=== PATIENT | male | born 1955 | race Caucasian/White ===

== ENCOUNTER → 2019-07-17 10:47 | Outpatient (CLI) | payer MEDICARE, SELFPAY ==
--- NOTE | 2019-07-17 | DI.CT.S_ITS ---
PROCEDURE: CT ABDOMEN PELVIS WO/W CON INDICATIONS: Gross hematuria TECHNIQUE: Optional 5 mm thick noncontrast images acquired from the diaphragm to the symphysis pubis. After the administration of intravenous contrast, 5 mm thick images acquired from the diaphragm to the symphysis pubis after a 10-minute delay. 2 mm thick coronal and sagittal reformats were then performed of the kidneys and ureters. For radiation dose reduction, the following was used: automated exposure control, adjustment of mA and/or kV according to patient size. COMPARISON: None. FINDINGS: Image quality: Excellent. Lung bases: Lung bases are clear. Heart size is normal. Urinary system: Both kidneys are normal in size, without hydronephrosis or nephrolithiasis on pre-contrast images. No perinephric fat stranding. There is normal bilateral renal enhancement. Renal calyces appear normal in morphology when filled with contrast. Opacified portions of both ureters demonstrate normal caliber. Bladder wall thickness is normal considering low bladder volume. No calcified bladder stones. Note is made of a 2.5 cm ovoid uniformly homogeneous 22 Hounsfield units nodule at the right adrenal gland. Incidental note is made of a 1 mm nonobstructive calculus at the left mid kidney anteriorly. Other solid organs: Liver is normal in size and enhancement. Gallbladder appears normal. Biliary system is non dilated. Pancreas enhances normally. Spleen is normal in size and enhancement with a 2.8 cm posterior splenic cyst showing no abnormal enhancement along its margins. No left-sided adrenal nodules. Peritoneum and bowel: Bowel loops demonstrate normal wall thickness and caliber. No free fluid or air. Nodes and vessels: No retroperitoneal or mesenteric adenopathy by size criteria. Aorta and inferior vena cava are normal in size. Abdominal wall: No ventral hernias. Pelvis: No pathologic free pelvic fluid. No inguinal hernias or adenopathy. Bones: No suspicious bony lesions. No vertebral body compression fractures. IMPRESSION: 1. Incidental finding of what likely is a 2.5 cm benign right adrenal nodule, at the suprarenal space, which should be evaluated utilizing adrenal protocol MR scanning without contrast to confirm benign etiology. 2. There is a punctate 1 mm calcification at what likely is a calyx of the anterior right kidney, seen on series 2 image 36. A stone of this small size frequently does not produce hematuria, especially gross hematuria, and and therefore this is likely a incidental finding. 3. Through the course of both ureters no mass or calculus is found. The bladder wall is somewhat difficult to accurately assess due to relative contraction of the bladder during time of scanning. Mild prostate enlargement. Dictated by: Ector Leiva M.D. on 07/17/2019 at 14:50 Approved by: Ector Leiva M.D. on 07/17/2019 at 14:57
== END ==
PROVIDERS: PCP Family Medicine; Visit Provider Family Medicine
DX: R31.0 Gross hematuria (principal); N20.0 Calculus of kidney; N40.0 Benign prostatic hyperplasia without lower urinary tract symptoms; E27.9 Disorder of adrenal gland, unspecified; D73.4 Cyst of spleen
CPT/HCPCS: 74178; Q9967

== ENCOUNTER → 2021-01-09 08:11 | Outpatient (CLI) | payer MEDICARE, SELFPAY ==
[2021-01-09 19:05] LABS: Add Manual Diff / Slide Review NO; Basophils Absolute Auto 100 /uL (0-100); Basophils Percent Auto 1.2 % (0-2); Eosinophils Absolute Auto 200 /uL (0-450); Lymphocytes Absolute Auto 2500 /uL (1100-4500); Lymphocytes Percent Auto 26.5 % (25-40); Mean Corpuscular HGB Conc 33.3 % (30-36); Mean Corpuscular Hemoglobin 31.6 PG (26-34); Monocytes Absolute Auto 500 /uL (0-900); Monocytes Percent Auto 4.8 % (3-14); Neutrophils Absolute Auto 6300 /uL (1500-7000); Neutrophils Percent Auto 65.5 % (50-75); Platelet Count 263 X10^3/uL (150-400); Red Blood Cell Count 4.73 X10^6/uL (4.5-5.9); Red Cell Distribution Width 13.3 % (11.6-14.8); White Blood Cell Count 9.5 X10^3/uL (4.5-11.0)
[2021-01-09 19:14] LABS: Alanine Aminotransferase 19 IU/L (<50); Albumin 4.3 g/dL (3.5-5.0); Albumin Globulin Ratio 1.4 (1.0-2.8); Alkaline Phosphatase 77 U/L (38-126); Aspartate Aminotransferase 22 IU/L (17-59); BUN Creatinine Ratio 15.7 (6-22); Bilirubin Total 0.5 mg/dL (0.2-1.3); Blood Urea Nitrogen 14 mg/dL (9-20); Calcium 9.6 mg/dL (8.4-10.2); Carbon Dioxide 28 mmol/L (22-32); Chloride 104 mmol/L (98-107); Cholesterol 223 mg/dL (140-199); Estimated Glomerular Filt Rate > 60.0 mL/min (>60); Globulin 3.1 g/dL (1.7-4.1); Glucose 115 mg/dL (80-110); HDL Cholesterol 36 mg/dL (40-60); HEMOLYSIS < 15 (0-50); LDL Cholesterol Calculated 150 mg/dL (<100); Potassium 4.1 mmol/L (3.4-5.1); Sodium 141 mmol/L (137-145); Total Protein 7.4 g/dL (6.3-8.2); Triglycerides 185 mg/dL (35-150)
[2021-01-09 19:57] LABS: Hemoglobin A1C% w Est Avg Glu 5.4 % (4.0-6.0)
== END ==
PROVIDERS: PCP Family Medicine; Visit Provider Family Medicine
DX: F10.20 Alcohol dependence, uncomplicated (principal); R10.9 Unspecified abdominal pain; R73.9 Hyperglycemia, unspecified; F12.90 Cannabis use, unspecified, uncomplicated; F33.1 Major depressive disorder, recurrent, moderate; I25.10 Atherosclerotic heart disease of native coronary artery without angina pectoris; Z95.1 Presence of aortocoronary bypass graft
CPT/HCPCS: 80053; 80061; 83036; 85025

== ENCOUNTER → 2021-08-31 08:57 | Outpatient (CLI) | payer MEDICARE, SELFPAY ==
[2021-08-31 19:41] LABS: Add Manual Diff / Slide Review NO; Basophils Absolute Auto 100 /uL (0-100); Basophils Percent Auto 0.8 % (0-2); Eosinophils Absolute Auto 200 /uL (0-450); Eosinophils Percent Auto 2.1 % (2-4); Hematocrit 45.1 % (41-53); Hemoglobin 15.4 g/dL (13.5-17.5); Lymphocytes Absolute Auto 2100 /uL (1100-4500); Lymphocytes Percent Auto 24.8 % (25-40); Mean Corpuscular HGB Conc 34.3 % (30-36); Mean Corpuscular Hemoglobin 32.7 PG (26-34); Mean Corpuscular Volume 95.5 fL (80-100); Monocytes Absolute Auto 400 /uL (0-900); Monocytes Percent Auto 5.1 % (3-14); Neutrophils Absolute Auto 5800 /uL (1500-7000); Neutrophils Percent Auto 67.2 % (50-75); Platelet Count 285 X10^3/uL (150-400); Red Blood Cell Count 4.72 X10^6/uL (4.5-5.9); Red Cell Distribution Width 13.7 % (11.6-14.8); White Blood Cell Count 8.6 X10^3/uL (4.5-11.0)
[2021-08-31 19:48] LABS: Cholesterol 296 mg/dL (140-199); HDL Cholesterol 39 mg/dL (40-60); LDL Cholesterol Calculated 214 mg/dL (<100); Triglycerides 213 mg/dL (35-150)
[2021-08-31 19:49] LABS: Alanine Aminotransferase 25 IU/L (<50); Albumin 4.5 g/dL (3.5-5.0); Albumin Globulin Ratio 1.5 (1.0-2.8); Alkaline Phosphatase 78 U/L (38-126); Aspartate Aminotransferase 28 IU/L (17-59); BUN Creatinine Ratio 8.5 (6-22); Blood Urea Nitrogen 8 mg/dL (9-20); Calcium 9.9 mg/dL (8.4-10.2); Carbon Dioxide 27 mmol/L (22-32); Chloride 104 mmol/L (98-107); Estimated Glomerular Filt Rate > 60.0 mL/min (>60); Globulin 3.1 g/dL (1.7-4.1); Glucose 113 mg/dL (80-110); HEMOLYSIS < 15 (0-50); Potassium 4.2 mmol/L (3.4-5.1); Sodium 139 mmol/L (137-145); Total Protein 7.6 g/dL (6.3-8.2)
[2021-08-31 20:17] LABS: Hemoglobin A1C% w Est Avg Glu 5.4 % (4.0-6.0)
[2021-08-31 20:19] LABS: TSH w/ Reflex to FT4 2.68 uIU/mL (0.47-4.68)
== END ==
PROVIDERS: PCP Family Medicine; Referring Provider Family Medicine; Visit Provider Family Medicine
DX: R73.9 Hyperglycemia, unspecified (principal); Z85.038 Personal history of other malignant neoplasm of large intestine; F33.1 Major depressive disorder, recurrent, moderate; F10.20 Alcohol dependence, uncomplicated; I25.118 Atherosclerotic heart disease of native coronary artery with other forms of angina pectoris; G62.1 Alcoholic polyneuropathy
CPT/HCPCS: 80053; 80061; 83036; 84443; 85025

== ENCOUNTER → 2021-09-18 09:15 | Outpatient (CLI) | payer MEDICARE, SELFPAY ==
[2021-09-18 20:20] LABS: COVID19 - ORCAS (NP or Nasal) Negative (Negative)
== END ==
PROVIDERS: PCP Family Medicine; Visit Provider Physician Assistant Medical
DX: Z20.822 Contact with and (suspected) exposure to COVID-19 (principal)
CPT/HCPCS: U0003

== ENCOUNTER → 2021-11-12 08:29 | Outpatient (CLI) | payer MEDICARE, SELFPAY ==
[2021-11-12 19:53] LABS: Alanine Aminotransferase 20 IU/L (<50); Albumin 4.5 g/dL (3.5-5.0); Albumin Globulin Ratio 1.6 (1.0-2.8); Alkaline Phosphatase 76 U/L (38-126); Aspartate Aminotransferase 23 IU/L (17-59); Bilirubin Total 0.8 mg/dL (0.2-1.3); Blood Urea Nitrogen 12 mg/dL (9-20); Calcium 9.6 mg/dL (8.4-10.2); Carbon Dioxide 28 mmol/L (22-32); Chloride 103 mmol/L (98-107); Cholesterol 159 mg/dL (140-199); Estimated Glomerular Filt Rate > 60.0 mL/min (>60); Globulin 2.8 g/dL (1.7-4.1); Glucose 104 mg/dL (80-110); HDL Cholesterol 36 mg/dL (40-60); HEMOLYSIS < 15 (0-50); LDL Cholesterol Calculated 101 mg/dL (<100); Potassium 4.4 mmol/L (3.4-5.1); Sodium 140 mmol/L (137-145); Total Protein 7.3 g/dL (6.3-8.2); Triglycerides 110 mg/dL (35-150)
[2021-11-12 20:21] LABS: TSH w/ Reflex to FT4 2.41 uIU/mL (0.47-4.68)
== END ==
PROVIDERS: PCP Family Medicine; Visit Provider Family Medicine
DX: I25.118 Atherosclerotic heart disease of native coronary artery with other forms of angina pectoris (principal); F33.1 Major depressive disorder, recurrent, moderate; E78.5 Hyperlipidemia, unspecified; I10 Essential (primary) hypertension
CPT/HCPCS: 80053; 80061; 84443

== ENCOUNTER → 2022-03-30 08:57 | Outpatient (CLI) | payer MEDICARE, SELFPAY ==
[2022-03-30 20:19] LABS: Alanine Aminotransferase 18 IU/L (<50); Albumin 4.1 g/dL (3.5-5.0); Albumin Globulin Ratio 1.5 (1.0-2.8); Alkaline Phosphatase 70 U/L (38-126); Aspartate Aminotransferase 21 IU/L (17-59); BUN Creatinine Ratio 16.3 (6-22); Bilirubin Total 0.9 mg/dL (0.2-1.3); Blood Urea Nitrogen 15 mg/dL (9-20); Calcium 9.1 mg/dL (8.4-10.2); Carbon Dioxide 28 mmol/L (22-32); Chloride 103 mmol/L (98-107); Cholesterol 137 mg/dL (140-199); Estimated Glomerular Filt Rate > 60 mL/min (>60); Globulin 2.7 g/dL (1.7-4.1); Glucose 92 mg/dL (80-110); HDL Cholesterol 36 mg/dL (40-60); HEMOLYSIS < 15 (0-50); LDL Cholesterol Calculated 83 mg/dL (<100); Potassium 4.1 mmol/L (3.4-5.1); Sodium 139 mmol/L (137-145); Total Protein 6.8 g/dL (6.3-8.2); Triglycerides 89 mg/dL (35-150)
== END ==
PROVIDERS: PCP Family Medicine; Visit Provider Family Medicine
DX: I25.10 Atherosclerotic heart disease of native coronary artery without angina pectoris (principal); E78.5 Hyperlipidemia, unspecified; F32.A Depression, unspecified; I10 Essential (primary) hypertension; M75.00 Adhesive capsulitis of unspecified shoulder
CPT/HCPCS: 80053; 80061

== ENCOUNTER → 2022-08-11 10:54 | Outpatient (CLI) | payer MEDICARE, SELFPAY ==
[2022-08-11 21:01] LABS: Alanine Aminotransferase 20 IU/L (<50); Albumin 4.2 g/dL (3.5-5.0); Albumin Globulin Ratio 1.4 (1.0-2.8); Alkaline Phosphatase 84 U/L (38-126); Aspartate Aminotransferase 22 IU/L (17-59); BUN Creatinine Ratio 20.4 (6-22); Bilirubin Total 1.1 mg/dL (0.2-1.3); Blood Urea Nitrogen 19 mg/dL (9-20); Calcium 9.1 mg/dL (8.4-10.2); Carbon Dioxide 26 mmol/L (22-32); Chloride 102 mmol/L (98-107); Cholesterol 184 mg/dL (140-199); Estimated Glomerular Filt Rate > 60 mL/min (>60); Glucose 101 mg/dL (80-110); HDL Cholesterol 47 mg/dL (40-60); HEMOLYSIS < 15 (0-50); LDL Cholesterol Calculated 118 mg/dL (<100); Potassium 4.3 mmol/L (3.4-5.1); Sodium 137 mmol/L (137-145); Total Protein 7.2 g/dL (6.3-8.2); Triglycerides 94 mg/dL (35-150)
== END ==
PROVIDERS: PCP Family Medicine; Visit Provider Family Medicine
DX: E78.5 Hyperlipidemia, unspecified (principal); I10 Essential (primary) hypertension; Z95.1 Presence of aortocoronary bypass graft
CPT/HCPCS: 80053; 80061

== ENCOUNTER → 2022-12-20 10:07 | Outpatient (CLI) | payer MEDICARE, MEDICAID, SELFPAY ==
--- NOTE | 2022-12-20 | DI.ECHO.S_ITS ---
[place] [facility]---------+ [facility] +---------+ : : [address] : [address] : : : : [id number] : : : : Phone: [phone]+ Echocardiogram Report + + :Name: LITTLE REDDY Study Date: 12/20/2022 Height: 76 in : :[facility] ReadingLocation: Weight: 200 lb : : Gender: Male BSA: 2.2 m2 : :: 1955 Age: 67 yrs BP: 134/78 mmHg: :Reason For Study: PRESENCE OF AORTOCORONARY BYPASS GRAFT HR: 64 : :Ordering Physician: THADDEUS, : :DEANA Performed By: THONY HERNANDEZ : :Referring: DEANA WINTERS : + + Interpretation Summary 1) Normal left ventricular thickness, size, wall motion, and systolic function (EF 60-65%). 2) Normal right ventricular size with mildly reduced function. 3) No significant valvular abnormalities. 4) No prior Echo available for comparison. Procedure: A two-dimensional transthoracic echocardiogram with color flow and Doppler was performed. The study quality was technically adequate. There is no prior echocardiogram noted for this patient. The patient was in normal sinus rhythm during the exam. Left Ventricle: The left ventricle is normal in size and wall thickness. The ejection fraction is estimated to be 60-65%. Left ventricular systolic function appears normal without focal wall motion abnormalities. Diastolic parameters suggest a relaxation abnormality of the left ventricle, consistent with probable normal filling pressures. Right Ventricle: The right ventricle is normal size. Right ventricular systolic function is mildly reduced. Atria: The left atrial size is normal. Right atrial size is normal. There is no Doppler evidence for an interatrial shunt. Mitral Valve: The mitral valve leaflets appear mildly thickened, but open well. There is trace mitral regurgitation. Aortic Valve: The aortic valve is trileaflet. The aortic valve opens well. There is no aortic valve stenosis. No aortic regurgitation is present. Tricuspid Valve: The tricuspid valve is normal in structure and function. There is mild tricuspid regurgitation. The right ventricular systolic pressure is estimated to be at least 20 mmHg based on an estimated right atrial pressure of 3 mm Hg. Pulmonic Valve: The pulmonic valve leaflets are thin and pliable; valve motion is normal. There is trace pulmonic regurgitation. Great Vessels: The aortic root is normal size. The ascending aorta is normal in size. The IVC is of normal diameter and collapses greater than 50% with a sniff. This suggests a low right atrial pressure of 3 mm Hg. Pericardium/ Pleura There is no pericardial effusion. There is no pleural effusion. MMode/2D Measurements & Calculations LVIDd: 4.5 cm LVOT diam: 2.0 cm LVIDs: 2.9 cm Ao root diam: 3.6 cm FS: 35.6 % asc Aorta Diam: 3.5 cm IVSd: 0.80 cm LVPWd: 0.80 cm LV patel. diameter/BSA (cm/m^2): 2.0 LV sys. diameter/BSA (cm/m^2): 1.3 LA A2 area: 20.0 cm2 RA long axis: 4.7 cm LA A4 area: 12.7 cm2 LA length (vol): 5.7 cm LA vol: 38.1 ml LA vol index: 17.2 ml/m2 LVLs ap4: 6.3 cm LVLd ap2: 7.7 cm LVLs ap2: 6.9 cm TAPSE_phl: 1.5 cm Doppler Measurements & Calculations Ao V2 max: 155.0 cm/sec LVOT Max Edil: 122.0 cm/sec Ao V2 mean: 113.0 cm/sec LV V1 max P.0 mmHg Ao max P.0 mmHg LV V1 VTI: 29.4 cm Ao mean P.0 mmHg BRYANT(I,D): 2.6 cm2 Ao V2 VTI: 36.2 cm BRYANT(V,D): 2.5 cm2 sev ratio: 0.81 BRYANT indexed to BSA (cm^2/m^2): 1.2 MV E max edil: 109.0 cm/sec TR max edil: 208.0 cm/sec MV A max edil: 86.5 cm/sec TR max P.3 mmHg MV E/A: 1.3 PA V2 max: 138.0 cm/sec Med Peak E' Edil: 10.3 cm/sec PA V2 mean: 102.0 cm/sec E/E' med: 10.6 PA mean P.0 mmHg Lat Peak E' Edil: 14.5 cm/sec PA pr(Accel): 25.0 mmHg E/E' lat: 7.5 E/e' average: 9.0 MV dec time: 0.25 sec SV(LVOT): 92.4 ml AV VR_phl: 0.79 BRYANT(VTI)/BSA_phl: 1.1 MV P1/2t-pr_phl: 74.0 msec Reading Physician:02:39 PM
--- NOTE | 2022-12-20 22:01 | DI.NM.S_ITS ---
DATE OF SERVICE: 12/20/2022 PROCEDURE: Exercise treadmill stress and rest myocardial perfusion imaging with gating to assess ejection fraction and regional wall motion. ORDERING PROVIDER: Edmond Winters MD INDICATIONS: The patient is a 67-year-old male with reduced exercise capacity and atypical chest discomfort with a history of tobacco use and previous CABG. CARDIAC STRESS: The patient was able to exercise for 4 minutes and 12 seconds on a standard Joon protocol suggesting moderate-severely reduced exercise capacity with an SUSIE of +37%, achieving 7.0 METS. He had a normal heart rate response to exercise, achieving a maximum heart rate of 148 bpm (97% of his predicted maximum). He had a borderline hypertensive blood pressure response with a resting blood pressure of 130/80 increasing to a maximum of 200/104. He had no chest pain or other anginal symptoms although had limiting exertional dyspnea. His resting ECG shows sinus rhythm with some nonspecific ST- segment abnormalities that become slightly accentuated with stress, but remain nonspecific. There were no arrhythmias. At 3 minutes and 10 seconds of exercise at a heart rate of 133 bpm, 25.4 millicuries of technetium-99m Myoview was injected and he was imaged 10 minutes later using a gated SPECT acquisition protocol. Earlier in the day while at rest, he had been injected with 12.3 millicuries of technetium-99m Myoview and was imaged 15 minutes later, again using a gated SPECT acquisition protocol. FINDINGS: 1. Raw data. There is fair myocardial tracer uptake with mild motion noted on the resting images which could introduce artifact. The lung/heart ratio is normal at 0.29 with a normal TID ratio of 0.85. 2. Quantitated gated SPECT: Post-stress ejection fraction is estimated at 74% without any focal wall motion abnormalities although slight lateral translation consistent with previous surgery. Resting ejection fraction is 71% with a normal end-diastolic volume of 119 mL. There is borderline increased tracer uptake of the right ventricular free wall which could be a sign of a right ventricular overload condition. 3. Myocardial perfusion imaging: Post-stress supine images show a normal myocardial perfusion pattern without any perfusion defects, supported by normal perfusion imaging in the prone position. The resting images show a mild defect in the inferior wall, but no areas of improvement. IMPRESSION: 1. Normal myocardial perfusion study. 2. No evidence for myocardial ischemia or previous myocardial infarction. 3. Normal left ventricular systolic function without focal wall motion abnormality. There is borderline increased tracer uptake of the right ventricular free wall which could be a sign of a right ventricular overload condition but clinical correlation is needed. 4. Moderate-severely reduced exercise capacity with limiting dyspnea but no chest discomfort or ECG evidence of ischemia. Roderick Barney - [place]/darvin/heide doc#: [id number]/job#: [id number] dd: 12/20/2022 16:39:00 dt: 12/20/2022 21:45:00 DICTATING MD/COPIES TO: Donavan Shi MD; Edmond Winters MD COPIES MNE: YURI;
== END ==
PROVIDERS: PCP Physician Assistant; Referring Provider Internal Medicine Cardiovascular Disease; Visit Provider Internal Medicine Cardiovascular Disease
DX: Z95.1 Presence of aortocoronary bypass graft (principal); R07.89 Other chest pain; R06.09 Other forms of dyspnea; I07.1 Rheumatic tricuspid insufficiency; I25.10 Atherosclerotic heart disease of native coronary artery without angina pectoris; Z87.891 Personal history of nicotine dependence
CPT/HCPCS: 78452; 93017; 93306; A9502

== ENCOUNTER → 2023-03-21 10:46 | Outpatient (CLI) | payer MEDICARE, MEDICAID, SELFPAY ==
[2023-03-21 19:35] LABS: Add Manual Diff / Slide Review NO; Basophils Absolute Auto 100 /uL (0-100); Basophils Percent Auto 0.9 % (0-2); Eosinophils Absolute Auto 200 /uL (0-450); Eosinophils Percent Auto 1.9 % (2-4); Hematocrit 38.7 % (41-53); Hemoglobin 13.2 g/dL (13.5-17.5); Lymphocytes Absolute Auto 2500 /uL (1100-4500); Lymphocytes Percent Auto 29.3 % (25-40); Mean Corpuscular HGB Conc 34.2 % (30-36); Mean Corpuscular Hemoglobin 31.8 PG (26-34); Monocytes Absolute Auto 500 /uL (0-900); Monocytes Percent Auto 5.4 % (3-14); Neutrophils Absolute Auto 5300 /uL (1500-7000); Neutrophils Percent Auto 62.5 % (50-75); Platelet Count 207 X10^3/uL (150-400); Red Blood Cell Count 4.17 X10^6/uL (4.5-5.9); Red Cell Distribution Width 12.5 % (11.6-14.8); White Blood Cell Count 8.5 X10^3/uL (4.5-11.0)
[2023-03-21 19:42] LABS: Alanine Aminotransferase 23 IU/L (<50); Albumin Globulin Ratio 1.5 (1.0-2.8); Alkaline Phosphatase 66 U/L (38-126); Aspartate Aminotransferase 24 IU/L (17-59); BUN Creatinine Ratio 18.1 (6-22); Bilirubin Total 0.4 mg/dL (0.2-1.3); Blood Urea Nitrogen 15 mg/dL (9-20); Calcium 8.9 mg/dL (8.4-10.2); Carbon Dioxide 26 mmol/L (22-32); Chloride 104 mmol/L (98-107); Cholesterol 111 mg/dL (140-199); Estimated Glomerular Filt Rate > 60 mL/min (>60); Globulin 2.6 g/dL (1.7-4.1); Glucose 103 mg/dL (80-110); HDL Cholesterol 33 mg/dL (40-60); HEMOLYSIS < 15 (0-50); LDL Cholesterol Calculated 61 mg/dL (<100); Potassium 4.4 mmol/L (3.4-5.1); Sodium 139 mmol/L (137-145); Total Protein 6.6 g/dL (6.3-8.2); Triglycerides 87 mg/dL (35-150)
[2023-03-21 19:50] LABS: Free T4, Direct Thyroxine 1.22 ng/dL (0.78-2.19)
== END ==
PROVIDERS: PCP Physician Assistant; Visit Provider Family Medicine
DX: C80.1 Malignant (primary) neoplasm, unspecified (principal); E78.2 Mixed hyperlipidemia; G63 Polyneuropathy in diseases classified elsewhere; I25.10 Atherosclerotic heart disease of native coronary artery without angina pectoris; I10 Essential (primary) hypertension
CPT/HCPCS: 80053; 80061; 84439; 85025

== ENCOUNTER → 2023-05-12 10:52 | Outpatient (CLI) | payer MEDICARE, MEDICAID, SELFPAY ==
[2023-05-12 20:02] LABS: HEMOLYSIS < 15 (0-50); Iron 95 ug/dL (49-181)
[2023-05-12 20:04] LABS: Add Manual Diff / Slide Review NO; Basophils Absolute Auto 100 /uL (0-100); Basophils Percent Auto 1.3 % (0-2); Eosinophils Absolute Auto 300 /uL (0-450); Eosinophils Percent Auto 3.9 % (2-4); Hematocrit 39.9 % (41-53); Hemoglobin 13.6 g/dL (13.5-17.5); Lymphocytes Absolute Auto 2400 /uL (1100-4500); Lymphocytes Percent Auto 28.9 % (25-40); Mean Corpuscular Hemoglobin 31.3 PG (26-34); Mean Corpuscular Volume 91.9 fL (80-100); Monocytes Absolute Auto 600 /uL (0-900); Neutrophils Absolute Auto 5000 /uL (1500-7000); Neutrophils Percent Auto 58.9 % (50-75); Platelet Count 236 X10^3/uL (150-400); Red Blood Cell Count 4.35 X10^6/uL (4.5-5.9); Red Cell Distribution Width 12.5 % (11.6-14.8); White Blood Cell Count 8.4 X10^3/uL (4.5-11.0)
[2023-05-12 20:12] LABS: Transferrin 245 mg/dL (206-381)
[2023-05-12 20:13] LABS: Reticulocyte Count, Percent 1.1 % (0.9-2.6)
[2023-05-12 20:43] LABS: Vitamin B12 304 pg/mL (239-931)
[2023-05-12 20:53] LABS: Percent Iron Saturation 26 % (20-50); Total Iron Binding Capacity 367 ug/dL (261-462)
[2023-05-12 21:01] LABS: Folate 6.4 ng/mL (2.76-20.0)
== END ==
PROVIDERS: PCP Family Medicine; Visit Provider Family Medicine
DX: D64.9 Anemia, unspecified (principal); E78.2 Mixed hyperlipidemia; F10.21 Alcohol dependence, in remission; F17.200 Nicotine dependence, unspecified, uncomplicated; I10 Essential (primary) hypertension; I25.10 Atherosclerotic heart disease of native coronary artery without angina pectoris
CPT/HCPCS: 82607; 82746; 83540; 83550; 85025; 85045

== ENCOUNTER 2023-08-18 09:05 | Day surgery (SDC) | payer MEDICARE, MEDICAID, SELFPAY ==
--- NOTE | 2023-08-18 | PATH_ITS ---
[facility] Accession Number: [id number] No. of containers..02 Tissue . 01 Material submitted: . PART A: colon - TRANSVERSE POLYPS PART B: rectum - RECTAL POLYP . 01 Diagnosis: A. Transverse Colon, Polyps: Tubular adenomas. . B. Rectum, Polyp: Tubular adenoma. MRV 08/24/2023 1710 Local . 01 Electronically signed: . Carleen Rajan MD, Pathologist NPI- [id number] . 01 Gross description: . Part A: TRANSVERSE POLYPS: Received in formalin is 3 fragment(s) of munguia, soft tissue measuring 0.4 x 0.3 x 0.3 cm to 0.3 x 0.3 x 0.2 cm submitted entirely in 1 cassette(s) Part B: RECTAL POLYP: Received in formalin is 1 fragment(s) of munguia, soft tissue measuring 0.8 x 0.5 x 0.4 cm which is bisected and submitted entirely in 1 cassette(s) /AAY 08/19/2023 0454 Local . 01 Pathologist provided ICD-10: D12.3, D12.8 . 01 CPT . C57945, [id number] Specimen Comment: A courtesy copy of this report has been sent to [phone] Performed at: 01 [facility] [address] [place] [address], [place], [place] [id number] MD Vincent Langston MD Phone: [phone]
[2023-08-18 09:23] VITALS: BP 143/85; PULSE 64; RESP 16; TEMP 36.1; O2SAT 98; BMI 25.5
[2023-08-18] MEDS: LACTATED RINGERS 1,000 ML 150 ML IV (09:39)
--- NOTE | 2023-08-18 10:27 | P.HP_ITS ---
History of Present Illness History of Present Illness Date Patient Seen: 08/18/23 Time Patient Seen: 10:27 Chief complaint: SDC Narrative: Roderick is a 68-year-old man with a history of colon cancer. He had a right hemicolectomy in approximately 2015 in [place]. He has not had a colonoscopy since then. COUNTS INCLUDE 234 BEDS AT THE [facility] Medical History (Updated 06/17/23 @ 13:56 by Donavan Og MD) Rectal bleeding Hypertension Adhesive capsulitis History of gross hematuria Alcoholism in remission Colon cancer Surgical History History of coronary artery bypass graft x 3 Social History household members: none Smoking Status: Current every day smoker alcohol intake: current additional social history: Patient states he is not currently drinking. 02/2023. jsm Meds Home Medications and Allergies Home Medications Medication Instructions Recorded Confirmed Type aspirin 325 mg tablet 325 mg PO BID 06/05/21 08/18/23 History nitroglycerin 0.4 mg sublingual 0.4 mg sublingual Q5M PRN chest 04/13/22 07/18/23 Rx tablet pain #30 tabs diphenhydramine 25 1 tab PO BEDTIME PRN Sleep 09/16/22 08/18/23 History mg-acetaminophen 500 mg tablet (Tylenol PM Extra Strength) lisinopril 20 mg tablet See Rx Instructions .Route 11/16/22 08/18/23 Rx .COMPLEX #90 tabs omeprazole 20 mg capsule,delayed See Rx Instructions .Route 11/16/22 08/18/23 Rx release .COMPLEX #180 caps albuterol sulfate 90 mcg/actuation 2 puff inhalation QID PRN 04/28/23 08/18/23 Rx aerosol inhaler (Ventolin HFA) shortness of breath or wheezing #8.5 grams lorazepam 0.5 mg tablet 0.5 mg PO BID PRN anxiety #30 tabs 06/29/23 08/18/23 Rx amlodipine 5 mg tablet 5 mg PO ONCE PM for blood pressure 07/22/23 08/18/23 Rx #90 tabs trazodone 50 mg tablet 50 mg PO BEDTIME #90 tabs 07/22/23 08/18/23 Rx rosuvastatin 40 mg tablet (Crestor) 40 mg PO DAILY #90 tabs 08/01/23 08/18/23 Rx metoprolol tartrate 50 mg tablet See Rx Instructions .Route 08/02/23 08/18/23 Rx .COMPLEX #180 tabs Allergies Allergy/AdvReac Type Severity Reaction Status Date / Time morphine Allergy Mild CONGESTION Verified 07/18/23 08:38 PER PATIENT Exam Vital Signs (past 8 hours): - 08/18/23 09:23 Temperature 97 F L Pulse Rate 64 Respiratory Rate 16 Blood Pressure 143/85 H Pulse Oximetry 98 Oxygen Delivery Method Room Air Oxygen Delivery Method Room Air Const General: No acute distress Resp Effort & Inspection: normal respiratory effort Assessment & Plan Assessment and plan (1) Colon cancer: Problem details: 2014- S/P COLECTOMY AND CHEMO Qualifiers: Colon location: unspecified part of colon Qualified Code(s): C18.9 - Malignant neoplasm of colon, unspecified Status: Acute Plan We reviewed the risks and benefits of colonoscopy for history of colon cancer and he would like to proceed.
--- NOTE | 2023-08-18 10:51 | PM.OP.COLON ---
Operative Date/Time/Diagnoses Date of procedure: 08/18/23 Time of procedure: 10:51 Pre-op diagnosis: Personal history of colon cancer Post-op diagnosis: same Procedure & Clinicians Study performed: Colonoscopy Same procedure as scheduled: Yes Surgeon: Michael Mirza Procedure Notes Procedure in detail: Surgeon: Michael Mirza MD Anesthesia: Juany Nguyen CRNA Procedure: The patient was brought to the endoscopy suite, placed in left lateral decubitus position. The patient was connected to monitoring devices. A time-out was performed. Sedation was administered. Once the patient was adequately sedated, a digital rectal exam was performed and was normal. The scope was then inserted and advanced to the ileocolic anastomosis. The scope was then slowly withdrawn over greater than 6 minutes. The mucosa was thoroughly inspected. There were 2 polyps in the transverse colon just anastomosis. Both were less than 1 cm and were removed with a cold snare. There was a 1 cm rectal polyp removed with a cold snare. The scope was retroflexed in the rectum. No other abnormalities were seen. The scope was straightened and removed. The patient was awakened and brought to recovery. Scope withdrawal time: 12 minutes Sedation time: 18 minutes EBL: 5 mL Findings: 2 subcentimeter polyps in the transverse colon and a 1 cm polyp in the rectum Post-procedure Disposition: PACU
[2023-08-18 10:53] VITALS: BP 101/58; PULSE 59; RESP 16; TEMP 36.2; O2SAT 98
[2023-08-18 11:01] VITALS: BP 101/55; PULSE 64; RESP 16; TEMP 36.2; O2SAT 94
[2023-08-18 11:03] VITALS: BP 102/77; PULSE 78; RESP 16; TEMP 36.8; O2SAT 98
== END 2023-08-18 11:21 | disposition home or self-care (01) ==
PROVIDERS: PCP Family Medicine; Referring Provider Surgery; Visit Provider Surgery
PROC: 0DJD8ZZ Inspection of Lower Intestinal Tract, Via Natural or Artificial Opening Endoscopic (ICD-10-PCS; CPT 45378; principal; 2023-08-18 10:15)
DX: Z12.11 Encounter for screening for malignant neoplasm of colon (principal); D12.3 Benign neoplasm of transverse colon; D12.8 Benign neoplasm of rectum
CPT/HCPCS: 45385; J2704

== ENCOUNTER → 2023-10-12 11:52 | Outpatient (CLI) | payer MEDICARE, MEDICAID, SELFPAY ==
[2023-10-12 19:05] LABS: Add Manual Diff / Slide Review NO; Basophils Absolute Auto 100 /uL (0-100); Basophils Percent Auto 0.6 % (0-2); Eosinophils Absolute Auto 200 /uL (0-450); Eosinophils Percent Auto 1.5 % (2-4); Hemoglobin 14.6 g/dL (13.5-17.5); Lymphocytes Absolute Auto 3400 /uL (1100-4500); Mean Corpuscular HGB Conc 33.9 % (30-36); Mean Corpuscular Volume 94.2 fL (80-100); Monocytes Absolute Auto 600 /uL (0-900); Monocytes Percent Auto 5.2 % (3-14); Neutrophils Absolute Auto 7100 /uL (1500-7000); Neutrophils Percent Auto 62.7 % (50-75); Platelet Count 242 X10^3/uL (150-400); Red Blood Cell Count 4.56 X10^6/uL (4.5-5.9); Red Cell Distribution Width 13.4 % (11.6-14.8); White Blood Cell Count 11.3 X10^3/uL (4.5-11.0)
[2023-10-12 19:14] LABS: Alanine Aminotransferase 37 IU/L (<50); Albumin Globulin Ratio 1.4 (1.0-2.8); Alkaline Phosphatase 67 U/L (38-126); Aspartate Aminotransferase 28 IU/L (17-59); BUN Creatinine Ratio 21.3 (6-22); Bilirubin Total 0.6 mg/dL (0.2-1.3); Blood Urea Nitrogen 17 mg/dL (9-20); Calcium 9.6 mg/dL (8.4-10.2); Carbon Dioxide 39 mmol/L (22-32); Chloride 104 mmol/L (98-107); Cholesterol 139 mg/dL (140-199); Estimated Glomerular Filt Rate > 60 mL/min (>60); Globulin 2.9 g/dL (1.7-4.1); Glucose 93 mg/dL (80-110); HDL Cholesterol 43 mg/dL (40-60); HEMOLYSIS < 15 (0-50); LDL Cholesterol Calculated 75 mg/dL (<100); Potassium 4.4 mmol/L (3.4-5.1); Sodium 139 mmol/L (137-145); Total Protein 6.9 g/dL (6.3-8.2); Triglycerides 107 mg/dL (35-150)
== END ==
PROVIDERS: PCP Family Medicine; Visit Provider Family Medicine
DX: J44.9 Chronic obstructive pulmonary disease, unspecified (principal); D64.9 Anemia, unspecified; I25.10 Atherosclerotic heart disease of native coronary artery without angina pectoris; E78.2 Mixed hyperlipidemia; I10 Essential (primary) hypertension; G62.1 Alcoholic polyneuropathy
CPT/HCPCS: 80053; 80061; 85025

== ENCOUNTER → 2024-02-29 11:15 | Outpatient (CLI) | payer MEDICARE, MEDICAID, SELFPAY ==
[2024-02-29 21:13] LABS: Add Manual Diff / Slide Review NO; Basophils Absolute Auto 100 /uL (0-100); Eosinophils Absolute Auto 100 /uL (0-450); Eosinophils Percent Auto 0.8 % (2-4); Hemoglobin 14.9 g/dL (13.5-17.5); Lymphocytes Absolute Auto 2700 /uL (1100-4500); Lymphocytes Percent Auto 26.4 % (25-40); Mean Corpuscular HGB Conc 33.8 % (30-36); Mean Corpuscular Hemoglobin 31.3 PG (26-34); Mean Corpuscular Volume 92.6 fL (80-100); Monocytes Absolute Auto 500 /uL (0-900); Monocytes Percent Auto 5.3 % (3-14); Neutrophils Absolute Auto 6800 /uL (1500-7000); Neutrophils Percent Auto 66.5 % (50-75); Platelet Count 233 X10^3/uL (150-400); Red Blood Cell Count 4.75 X10^6/uL (4.5-5.9); Red Cell Distribution Width 13.4 % (11.6-14.8); White Blood Cell Count 10.3 X10^3/uL (4.5-11.0)
[2024-02-29 22:49] LABS: BUN Creatinine Ratio 15.9 (6-22); Blood Urea Nitrogen 14 mg/dL (9-20); Calcium 9.6 mg/dL (8.4-10.2); Carbon Dioxide 24 mmol/L (22-32); Chloride 107 mmol/L (98-107); Cholesterol 158 mg/dL (140-199); Estimated Glomerular Filt Rate > 60 mL/min (>60); Glucose 121 mg/dL (80-110); HDL Cholesterol 42 mg/dL (40-60); HEMOLYSIS < 15 (0-50); LDL Cholesterol Calculated 89 mg/dL (<100); Potassium 4.6 mmol/L (3.4-5.1); Sodium 138 mmol/L (137-145); Triglycerides 135 mg/dL (35-150)
[2024-02-29 23:04] LABS: TSH w/ Reflex to FT4 2.14 uIU/mL (0.47-4.68)
== END ==
PROVIDERS: PCP Family Medicine; Visit Provider Family Medicine
DX: R06.09 Other forms of dyspnea (principal); J44.9 Chronic obstructive pulmonary disease, unspecified; D64.9 Anemia, unspecified; E78.2 Mixed hyperlipidemia; I25.10 Atherosclerotic heart disease of native coronary artery without angina pectoris; Z95.1 Presence of aortocoronary bypass graft; I10 Essential (primary) hypertension
CPT/HCPCS: 80048; 80061; 84443; 85025

== ENCOUNTER → 2024-03-15 14:09 | Outpatient (CLI) | payer MEDICARE, MEDICAID, SELFPAY ==
--- NOTE | 2024-03-16 18:53 | DI.NM.S_ITS ---
DATE OF SERVICE: 03/15/2024 PHARMACOLOGICAL PERFUSION STUDY INDICATION: Chest pain with known history of bypass surgery, hypertension, hyperlipidemia. RADIOPHARMACEUTICAL: 26.0 millicurie technetium-99m Myoview IV was injected at stress and 26.1 millicurie technetium-99m Myoview IV was injected at rest. CARDIAC STRESS: The patient underwent IV Lexiscan perfusion study under the supervision of an attending staff using standard intravenous Lexiscan as per protocol. Baseline rhythm was sinus. During stress, no convincing ischemic changes seen. No significant arrhythmias. No aminophylline was needed. The patient had minimal dyspnea. No chest discomfort. RAW DATA: There is an increase of subdiaphragmatic activity. Gut shadow seen near the inferior border of the heart. GATED STUDY: Stress LV ejection fraction 73% and resting LV ejection fraction 71% without any obvious wall motion abnormalities. Resting end- diastolic volume 96 mL. TID ratio 1.24, which is within normal limits. Lung/heart ratio 0.25, which is within normal limits. Stress end- diastolic volume 118 mL. MYOCARDIAL PERFUSION SCAN: Stress supine, resting supine and stress prone images were compared to each other. Stress supine and resting supine images revealed small size mildly decreased perfusion of basal inferior wall which got completely resolved during stress prone images suggestive of tissue attenuation artifact. No convincing ischemia and infarction. CONCLUSION: I will call this study a normal myocardial perfusion study with evidence of tissue attenuation artifact which got resolved during prone images. Preserved left ventricular function. No ischemic electrocardiographic changes. No significant arrhythmias. Overall low risk pharmacological perfusion study. The patient had exercise perfusion study in December 2022, that time also had normal myocardial perfusion, but had exercise study with diminished exercise tolerance. Roderick Barney - [place]/darvin/[place] doc#: [id number]/job#: [id number] dd: 03/16/2024 17:26:00 dt: 03/16/2024 18:44:00 DICTATING MD/COPIES TO: Day Spaulding MD COPIES MNE: SOFIA;
== END ==
LOC: NUCM 14:10
PROVIDERS: PCP Family Medicine; Referring Provider Family Medicine; Visit Provider Family Medicine
DX: I25.10 Atherosclerotic heart disease of native coronary artery without angina pectoris (principal); R06.09 Other forms of dyspnea; Z95.1 Presence of aortocoronary bypass graft
CPT/HCPCS: 78452; 93017; A9502; J2785

== ENCOUNTER → 2024-10-26 08:30 | Outpatient (CLI) | payer MEDICARE, MEDICAID, SELFPAY ==
[2024-10-26 18:09] LABS: Add Manual Diff / Slide Review NO; Basophils Absolute Auto 100 /uL (0-100); Basophils Percent Auto 0.9 % (0-2); Eosinophils Absolute Auto 200 /uL (0-450); Eosinophils Percent Auto 2.1 % (2-4); Hematocrit 44.9 % (41-53); Hemoglobin 15.3 g/dL (13.5-17.5); Lymphocytes Absolute Auto 1700 /uL (1100-4500); Lymphocytes Percent Auto 23.6 % (25-40); Mean Corpuscular HGB Conc 34.1 % (30-36); Mean Corpuscular Hemoglobin 31.4 PG (26-34); Mean Corpuscular Volume 92.1 fL (80-100); Monocytes Absolute Auto 300 /uL (0-900); Monocytes Percent Auto 4.3 % (3-14); Neutrophils Absolute Auto 5100 /uL (1500-7000); Neutrophils Percent Auto 69.1 % (50-75); Platelet Count 212 X10^3/uL (150-400); Red Blood Cell Count 4.87 X10^6/uL (4.5-5.9); Red Cell Distribution Width 13.1 % (11.6-14.8); White Blood Cell Count 7.4 X10^3/uL (4.5-11.0)
[2024-10-26 18:14] LABS: Alanine Aminotransferase 37 IU/L (<50); Albumin 4.3 g/dL (3.5-5.0); Albumin Globulin Ratio 1.6 (1.0-2.8); Alkaline Phosphatase 75 U/L (38-126); Aspartate Aminotransferase 31 IU/L (17-59); Bilirubin Total 0.6 mg/dL (0.2-1.3); Blood Urea Nitrogen 14 mg/dL (9-20); Calcium 9.5 mg/dL (8.4-10.2); Carbon Dioxide 22 mmol/L (22-32); Chloride 103 mmol/L (98-107); Cholesterol 123 mg/dL (140-199); Estimated Glomerular Filt Rate > 60 mL/min (>60); Globulin 2.7 g/dL (1.7-4.1); Glucose 111 mg/dL (80-110); HDL Cholesterol 29 mg/dL (40-60); HEMOLYSIS < 15 (0-50); LDL Cholesterol Calculated 69 mg/dL (<100); Potassium 4.4 mmol/L (3.4-5.1); Sodium 136 mmol/L (137-145); Triglycerides 126 mg/dL (35-150)
== END ==
PROVIDERS: PCP Family Medicine; Visit Provider Family Medicine
DX: F10.90 Alcohol use, unspecified, uncomplicated (principal); D64.9 Anemia, unspecified; I25.810 Atherosclerosis of coronary artery bypass graft(s) without angina pectoris; E78.2 Mixed hyperlipidemia; I10 Essential (primary) hypertension
CPT/HCPCS: 80053; 80061; 85025

== ENCOUNTER → 2025-08-13 10:06 | Outpatient (CLI) | payer MEDICARE, MEDICAID, SELFPAY ==
[2025-08-13 19:24] LABS: Influenza A - CEPHEID Flu A NEGATIVE (NEGATIVE); Influenza B - CEPHEID Flu B NEGATIVE (NEGATIVE)
[2025-08-13 19:28] LABS: COVID-19 CEPHEID 4-PLEX PCR POSITIVE (Negative)
== END ==
PROVIDERS: PCP Family Medicine; Referring Provider Physician Assistant Medical; Visit Provider Physician Assistant Medical
DX: J06.9 Acute upper respiratory infection, unspecified (principal); R19.7 Diarrhea, unspecified
CPT/HCPCS: 87637